=== PATIENT | female | born 1995 | race Caucasian/White ===

== ENCOUNTER → 2017-04-14 | Outpatient (CLI) | payer BC ==
--- NOTE | ~2017-04-14 | CR184 ---
[facility] A Service of [facility] & [facility] RADIOLOGY TEXT RESULTS PATIENT: KEVIN TOM LOCATION: [facility] : [birth year] UNIT #: [id number] AGE: [address]: Elodia Almanza MD SEX: F ORDER DR: [id number] [facility] [address] [facility]. [place], [place] [address] [id number] O MR#: [id number] Acc #: [id number] NAME: KEVIN TOM : 1995 SEX: F STUDY DATE/TIME: 04/14/2017 16:12 UNIT: [facility] ROOM: STUDY DESCRIPTION: CR Lumbar Spine Min 4 Views Attending Physician: Elodia Almanza M.D. Referring Physician: Elodia Almanza M.D. Ordering Physician: Elodia Almanza M.D. Primary Care Physician: Elodia Almanza M.D. MEDICAL IMAGING REPORT This report is preliminary unless electronic signature is present EXAM Lumbar spine 5 views 04/14/2017 HISTORY Low back pain right side for 1 week. No known injury. FINDINGS AP and lateral projections of the lumbar segment show good mineralization of both anterior and posterior elements. They are all anatomically normal without indication of fracture, dislocation, or malignant change of a sclerotic or lytic type. There is no congenital defect noted. The sacroiliac joints are normal. IMPRESSION Normal lumbar spine. Dictated by... Abel Garces M.D. THIS IS AN ELECTRONICALLY VERIFIED REPORT Abel Garces M.D. at 04/15/2017 2:11 PM [email or web address] TD: 04/15/2017 09:41 JOB #: [id number] MEDICAL IMAGING REPORT Page 1 of 1 COPY
== END | disposition home or self-care (01) ==
LOC: CRAD 15:51
DX: M54.5 Low back pain (principal)
CPT/HCPCS: 72110